=== PATIENT | female | born 1985 | race Hispanic/Latino ===

== ENCOUNTER 2022-05-02 12:22 | Emergency (ER) | payer OTHER ==
[~2022-05-02] VITALS: Ht 165.1 cm; Wt 80.3 kg
[2022-05-02 14:05] LABS: BASOPHILS % (AUTO) 0.2 % (0.0-5.0); HEMATOCRIT 42.9 % (36-48); LYMPHOCYTES % (AUTO) 13.5 % (21.0-51.0); MEAN CORPUSCULAR HEMOGLOBIN 32.8 pg (27.0-33.0); MEAN CORPUSCULAR HGB CONC 35.7 g/dL (32.0-36.0); MEAN CORPUSCULAR VOLUME 92.1 fL (79-99); MONOCYTES % (AUTO) 8.3 % (3.0-13.0); NEUTROPHILS % (AUTO) 77.5 % (40.0-77.0); PLATELET COUNT (AUTO) 217 K/uL (130-400); RED BLOOD CELL COUNT(AUTO) 4.66 MIL/uL (4.00-5.50); RED CELL DISTRIBUTION WIDTH 12.2 % (11.0-15.5); WHITE BLOOD COUNT (AUTO) 6.7 K/uL (4.8-10.8)
[2022-05-02 14:19] LABS: ALBUMIN 3.8 g/dL (3.5-5.0); BILIRUBIN,TOTAL 0.3 mg/dL (0.2-1.0); CREATININE 0.8 mg/dL (0.5-1.5); MAGNESIUM 2.3 mg/dL (1.80-2.40); POTASSIUM 3.8 mmol/L (3.5-5.1); TOTAL PROTEIN, SERUM 7.3 g/dL (6.0-8.3)
[2022-05-02 15:04] VITALS: BP 123/72
== END 2022-05-02 15:17 | disposition home or self-care (01) ==
LOC: EDH 12:22
DX: R00.1 Bradycardia, unspecified (principal); Z98.890 Other specified postprocedural states
CPT/HCPCS: 36415; 80053; 82550; 83735; 84484; 85025; 93005

== ENCOUNTER 2023-04-02 11:11 | Observation (INO) | payer BC, OTHER ==
[~2023-04-02] VITALS: Ht 165.1 cm; Wt 83.9 kg
[2023-04-02] MEDS ORDERED: ADENOSINE 6MG VIAL IV ONE ×3 (11:16→12:00)
[2023-04-02] MEDS ORDERED: ASPIRIN 325MG TAB PO ONE (11:30)
[2023-04-02 11:53] LABS: BASOPHILS % (AUTO) 0.8 % (0.0-5.0); EOSINOPHILS % (AUTO) 0.7 % (0.0-8.0); HEMATOCRIT 46.7 % (36-48); LYMPHOCYTES % (AUTO) 30.8 % (21.0-51.0); MEAN CORPUSCULAR HEMOGLOBIN 32.3 pg (27.0-33.0); MEAN CORPUSCULAR VOLUME 94.9 fL (79-99); NEUTROPHILS % (AUTO) 58.3 % (40.0-77.0); PLATELET COUNT (AUTO) 362 K/uL (130-400); RED BLOOD CELL COUNT(AUTO) 4.92 MIL/uL (4.00-5.50); RED CELL DISTRIBUTION WIDTH 12.3 % (11.0-15.5); WHITE BLOOD COUNT (AUTO) 9.1 K/uL (4.8-10.8)
[2023-04-02 11:58] LABS: CREATININE 0.7 mg/dL (0.5-1.5)
[2023-04-02 12:02] LABS: ALBUMIN 4.8 g/dL (3.5-5.0); TOTAL PROTEIN, SERUM 7.7 g/dL (6.0-8.3)
[2023-04-02 12:28] LABS: B-TYPE NATRIURETIC PEPTIDE 17 pg/mL (0-100)
[2023-04-02] MEDS ORDERED: ENOXAPARIN SODIUM 80 MG/0.8 ML SQ ONE (14:30)
[2023-04-02 14:41] LABS: APPEARANCE,URINE CLEAR (CLEAR); BILIRUBIN,URINE NEGATIVE (NEGATIVE); COLOR,URINE LIGHT-YELLOW (YELLOW); GLUCOSE, URINE (UA) NEGATIVE (NEGATIVE); KETONES,URINE 20 mg/dL (NEGATIVE); LEUKOCYTE ESTERASE ,URINE 75 Leu/uL (NEGATIVE); NITRATE,URINE 2+ (NEGATIVE); OCCULT BLOOD,URINE NEGATIVE (NEGATIVE); PH,URINE 6.5 (5.0-8.0); PROTEIN,URINE NEGATIVE (NEGATIVE); UROBILINOGEN,URINE 0.2 mg/dL (0.2-1.0)
[2023-04-02 14:52] LABS: BACTERIA,URINE RARE /HPF (None Seen); RBC,URINE 0-1 /HPF (0-1); SQUAMOUS EPITHELIAL CELL,UR RARE /HPF (0-2)
[2023-04-02 14:55] LABS: HCG,QUALITATIVE URINE NEGATIVE (NEGATIVE)
[2023-04-02] MEDS ORDERED: METO-391 PO (15:57)
[2023-04-02 16:30] VITALS: BP 107/68
== END 2023-04-02 16:46 | disposition home or self-care (01) ==
LOC: EDH 11:11 → EDHIP 15:03
PROVIDERS: ADMIT Family Medicine; ATTEND Family Medicine
DX: I47.1 Supraventricular tachycardia (principal); E66.01 Morbid (severe) obesity due to excess calories; N91.2 Amenorrhea, unspecified; Z98.84 Bariatric surgery status; Z79.899 Other long term (current) drug therapy; Z98.890 Other specified postprocedural states; Z98.891 History of uterine scar from previous surgery; Z68.30 Body mass index [BMI] 30.0-30.9, adult
CPT/HCPCS: 96374; 96372; 80050; 84484 ×2; 83880; 84703; 87077; 87088; 87186; 81001; 81025; 36415; 71045; 99291; 93005 ×2; G0378 ×2; J0153; J1650; 80053; 84443; 85025

== ENCOUNTER 2024-04-22 22:15 | Emergency (ER) | payer BC ==
[~2024-04-22] VITALS: Ht 167.6 cm; Wt 81.6 kg
[~2024-04-22 22:15] MED LIST: METO-391 PO
[2024-04-22 23:02] LABS: BASOPHILS # (AUTO) 0.05 K/uL (0.00-0.20); BASOPHILS % (AUTO) 0.8 % (0.0-5.0); EOSINOPHILS # (AUTO) 0.08 K/uL (0.00-0.70); EOSINOPHILS % (AUTO) 1.2 % (0.0-8.0); HEMATOCRIT 40.9 % (36-48); IMMATURE GRANULOCYTE ABSOLUTE 0.02 K/uL (0-1); LYMPHOCYTES # (AUTO) 2.9 K/uL (1.0-4.8); LYMPHOCYTES % (AUTO) 44.3 % (21.0-51.0); MEAN CORPUSCULAR HEMOGLOBIN 32.8 pg (27.0-33.0); MEAN CORPUSCULAR HGB CONC 34.7 g/dL (32.0-36.0); MEAN CORPUSCULAR VOLUME 94.5 fL (79-99); MONOCYTES # (AUTO) 0.6 K/uL (0.1-1.0); MONOCYTES % (AUTO) 9.3 % (3.0-13.0); NEUTROPHILS # (AUTO) 2.9 K/uL (1.8-7.7); NEUTROPHILS % (AUTO) 44.1 % (40.0-77.0); PLATELET COUNT (AUTO) 261 K/uL (130-400); RED BLOOD CELL COUNT(AUTO) 4.33 MIL/uL (4.00-5.50); RED CELL DISTRIBUTION WIDTH 11.8 % (11.0-15.5); WHITE BLOOD COUNT (AUTO) 6.6 K/uL (4.8-10.8)
[2024-04-22 23:10] LABS: CREATININE 0.7 mg/dL (0.5-1.0); POTASSIUM 3.6 mmol/L (3.5-5.1)
[2024-04-22 23:11] LABS: APPEARANCE,URINE CLEAR (CLEAR); BILIRUBIN,URINE NEGATIVE (NEGATIVE); COLOR,URINE YELLOW (YELLOW); GLUCOSE, URINE (UA) NEGATIVE (NEGATIVE); KETONES,URINE 5 mg/dL (NEGATIVE); LEUKOCYTE ESTERASE ,URINE NEGATIVE Leu/uL (NEGATIVE); NITRATE,URINE NEGATIVE (NEGATIVE); OCCULT BLOOD,URINE NEGATIVE (NEGATIVE); PH,URINE 5.5 (5.0-8.0); PROTEIN,URINE 10 mg/dL (NEGATIVE); UROBILINOGEN,URINE 3 mg/dL (0.2-1.0)
[2024-04-22 23:17] LABS: HCG,QUALITATIVE URINE NEGATIVE (NEGATIVE)
[2024-04-22 23:26] LABS: B-TYPE NATRIURETIC PEPTIDE 6 pg/mL (0-100)
[2024-04-22 23:27] LABS: ADD UA MICROSCOPIC YES
[2024-04-22 23:33] LABS: CALCIUM OXALATE CRYSTALS,UR FEW /LPF (None Seen); MUCUS,URINE FEW LPF (None Seen); RBC,URINE 0-1 /HPF (0-1); SQUAMOUS EPITHELIAL CELL,UR RARE /HPF (0-2)
[2024-04-23 01:57] VITALS: BP 126/62; PULSE 68; RESP 20; O2SAT 98
== END 2024-04-23 02:13 | disposition home or self-care (01) ==
LOC: EDH 22:15
DX: R00.2 Palpitations (principal); Z79.899 Other long term (current) drug therapy; Z98.890 Other specified postprocedural states
CPT/HCPCS: 36415; 71045; 80048; 81001; 81025; 82550; 83880; 84484; 85025; 93005

== ENCOUNTER 2024-06-18 20:38 | Emergency (ER) | payer BC ==
[~2024-06-18] VITALS: Ht 165.1 cm; Wt 81.6 kg
[2024-06-18 21:08] LABS: BASOPHILS # (AUTO) 0.07 K/uL (0.00-0.20); BASOPHILS % (AUTO) 0.8 % (0.0-5.0); EOSINOPHILS # (AUTO) 0.09 K/uL (0.00-0.70); HEMATOCRIT 40.1 % (36-48); IMMATURE GRANULOCYTE ABSOLUTE 0.04 K/uL (0-1); LYMPHOCYTES # (AUTO) 2.1 K/uL (1.0-4.8); LYMPHOCYTES % (AUTO) 24.7 % (21.0-51.0); MEAN CORPUSCULAR HEMOGLOBIN 32.8 pg (27.0-33.0); MEAN CORPUSCULAR HGB CONC 33.7 g/dL (32.0-36.0); MEAN CORPUSCULAR VOLUME 97.3 fL (79-99); MONOCYTES # (AUTO) 0.8 K/uL (0.1-1.0); MONOCYTES % (AUTO) 9.3 % (3.0-13.0); NEUTROPHILS # (AUTO) 5.5 K/uL (1.8-7.7); NEUTROPHILS % (AUTO) 63.7 % (40.0-77.0); PLATELET COUNT (AUTO) 280 K/uL (130-400); RED BLOOD CELL COUNT(AUTO) 4.12 MIL/uL (4.00-5.50); RED CELL DISTRIBUTION WIDTH 13.2 % (11.0-15.5); WHITE BLOOD COUNT (AUTO) 8.6 K/uL (4.8-10.8)
[2024-06-18 21:17] LABS: CREATININE 0.8 mg/dL (0.5-1.0); POTASSIUM 3.9 mmol/L (3.5-5.1)
[2024-06-18 21:27] LABS: ALBUMIN 3.8 g/dL (3.5-5.0); B-TYPE NATRIURETIC PEPTIDE 29 pg/mL (0-100); BILIRUBIN,TOTAL 0.7 mg/dL (0.2-1.0); TOTAL PROTEIN, SERUM 6.6 g/dL (6.0-8.3)
[2024-06-18 21:27] LABS: APPEARANCE,URINE CLEAR (CLEAR); BILIRUBIN,URINE NEGATIVE (NEGATIVE); COLOR,URINE YELLOW (YELLOW); GLUCOSE, URINE (UA) NEGATIVE (NEGATIVE); KETONES,URINE 5 mg/dL (NEGATIVE); LEUKOCYTE ESTERASE ,URINE NEGATIVE Leu/uL (NEGATIVE); NITRATE,URINE NEGATIVE (NEGATIVE); OCCULT BLOOD,URINE NEGATIVE (NEGATIVE); PH,URINE 5.5 (5.0-8.0); PROTEIN,URINE 20 mg/dL (NEGATIVE)
[2024-06-18 21:28] LABS: ADD UA MICROSCOPIC YES
[2024-06-18 21:29] LABS: BACTERIA,URINE RARE /HPF (None Seen); CALCIUM OXALATE CRYSTALS,UR FEW /LPF (None Seen); MUCUS,URINE MOD LPF (None Seen); RBC,URINE 0-1 /HPF (0-1); SQUAMOUS EPITHELIAL CELL,UR RARE /HPF (0-2)
[2024-06-18] MEDS ORDERED: METH4TAB3 PO (22:16)
[2024-06-18] MEDS ORDERED: DIPH-1242 PO (22:16)
[2024-06-18] MEDS ORDERED: FAMO-136 PO (22:16)
[2024-06-18 23:11] VITALS: BP 111/70; PULSE 66; RESP 18; TEMP 98.4; O2SAT 98
[2024-06-18] MEDS: dexaMETHasone 4 MG TAB PO SCH (23:15)
[2024-06-18] MEDS: FAMOTIDINE 20MG TAB PO ONE (23:15)
[2024-06-18] MEDS: DiphenhydrAMINE HCL 25 MG CAPSULE PO ONE (23:16)
== END 2024-06-18 23:19 | disposition home or self-care (01) ==
LOC: EDH 20:38
DX: M79.10 Myalgia, unspecified site (principal); T50.905A Adverse effect of unspecified drugs, medicaments and biological substances, initial encounter; Z79.899 Other long term (current) drug therapy; Z98.890 Other specified postprocedural states; Y92.89 Other specified places as the place of occurrence of the external cause
CPT/HCPCS: 99284; 82550; 84484; 80053; 83880; 84703; 83690; 85025; 81001; 36415; 93005; Q0163; J8540

== ENCOUNTER 2025-08-29 21:49 | Emergency (ER) | payer BC ==
[~2025-08-29] VITALS: Ht 165.1 cm; Wt 72.1 kg
[~2025-08-29 21:49] MED LIST changes: +DIPH-1242 PO; +FAMO-136 PO; +METH4TAB3 PO
[2025-08-29 22:02] LABS: IMMATURE GRANULOCYTE ABSOLUTE 0.02 K/uL (0-1); NUCLEATED RED BLOOD CELLS 0.0 % (0.0-0.19); PLATELET COUNT (AUTO) 264 K/uL (130-400); RED BLOOD CELL COUNT(AUTO) 4.47 MIL/uL (4.00-5.50); RED CELL DISTRIBUTION WIDTH 12.3 % (11.0-15.5); WHITE BLOOD COUNT (AUTO) 9.1 K/uL (4.8-10.8)
[2025-08-29 22:16] LABS: CREATINE KINASE, TOTAL 98.0 U/L (21-232); CREATININE 0.7 mg/dL (0.5-1.0); GLOMERULAR FILTR. RATE CALC 112.0 mL/min (>90); GLUCOSE,RANDOM 112.0 mg/dL (70-105); SODIUM SERUM 141.0 mmol/L (136-145); UREA NITROGEN, BLOOD 13.0 mg/dL (7-18)
[2025-08-29] MEDS: 0.9%NACL 1000ML 1,000 ML IV ONE (22:27)
[2025-08-29] MEDS: ADENOSINE 6MG VIAL IV ONE ×2 (22:28)
--- NOTE | 2025-08-29 23:05 | HMCIMG ---
EXAM: CR Chest, 1 View. CLINICAL HISTORY: CHEST PAIN COMPARISON: None provided. FINDINGS: LUNGS: The lungs show no infiltrate or other acute finding. PLEURAL SPACES: No evidence of pleural effusion or pneumothorax. MEDIASTINUM: The cardiomediastinal silhouette is within normal limits. BONES: No aggressive appearing osseous lesion seen. IMPRESSION: No acute cardiopulmonary pathology is evident. /[place]
[2025-08-30] LABS: APPEARANCE,URINE CLEAR (CLEAR); GLUCOSE, URINE (UA) NEGATIVE (NEGATIVE); LEUKOCYTE ESTERASE ,URINE NEGATIVE Leu/uL (NEGATIVE); NITRATE,URINE NEGATIVE (NEGATIVE); OCCULT BLOOD,URINE NEGATIVE (NEGATIVE)
[2025-08-30 00:01] LABS: ADD UA MICROSCOPIC YES
[2025-08-30 00:05] LABS: SQUAMOUS EPITHELIAL CELL,UR RARE /HPF (0-2)
--- NOTE | 2025-08-30 00:06 | ERN ---
ED Note History of Present Illness Stated Complaint: C/O PALPITATIONS; HX OF SVT Chief Complaint: Palpitations Time Seen by MD: 21:51 Time Seen by Midlevel: 21:51 Dictation: The patient is an 39-year-old female with history of SVT currently on metoprolol 50 mg daily who presents to the emergency department with complains of palpitations onset 8:30 pm. Reports her heart rate to be 200s and try to do Valsalva maneuvers with no relief. Reports compliant with mediation. Denies any chest pain. Allergies: Coded Allergies: No Known Allergies (Unverified Allergy, Unknown, 05/02/22) Home Meds Active Scripts Methylprednisolone (Medrol) 4 Mg Tab.ds.pk, 4 MG PO AD, #1 PACK Prov:[facility] 06/18/24 Diphenhydramine HCl (Benadryl) 25 Mg Cap, 25 MG PO BID for 5 Days, #10 CAP Prov:[facility] 06/18/24 Famotidine (Pepcid) 20 Mg Tablet, 20 MG PO BID for 7 Days, #14 TAB Prov:[facility] 06/18/24 Metoprolol Succinate (Metoprolol Succinate) 50 Mg Tab.er.24h, 50 MG PO DAILY, #30 TAB Prov:DESIREE SALMERON MD 04/02/23 Past Medical History Past Medical History: Other Additional Past Medical Hx: HX OF TACHYCARDIA Surgical History: Other, Surgical History Other: GASTRIC SLEEVE; BREAST IMPLANTS Social History: Negative, Lives with family History: Not Applicable RN Note Reviewed/Agreed w/PFSH: Yes Review of System Dictation Constitutional: Negative for fever,chills, and weight loss Eyes: Negative for injury, pain,redness, and discharge ENT: Negative for injury,pain or swelling Cardiovascular: Negative for chest pain, and edema Positive for palpitations, Respiratory: Negative for cough, and wheezing, positive for shortness of breath Abdomen/GI: Negative for abdominal pain, nausea, vomiting, diarrhea, and constipation Back: Negative for injury and pain : Negative for injury, bleeding and discharge MS/Extremity: Negative for injury and deformity Skin: Negative for rash, and discoloration Neuro: Negative for headache, weakness, numbness, tingling, and seizure Psych: Negative for suicide ideation, homicidal ideation, and hallucinations Initial Vital Sign VS Vital Signs Date Time Temp Pulse Resp B/P (MAP) Pulse Ox O2 Delivery O2 Flow Rate FiO2 08/29/25 21:51 98.1 188 24 147/100 98 Room Air 08/29/25 22:00 10 100 Physical Exam Dictation Vital Signs reviewed General Appearance: Alert, oriented x 3, no acute distress, well developed, nourished. Head and Face: non-traumatic. Eyes: PERRL, pink conjunctivas, eyelid no trauma, anterior chamber with arcus senilis. Ears: Pinnas intact and no signs of trauma or erythema ear canals clear and no discharge TM no erythema Nose: No discharge, no bleeding. Oropharynx: Mouth normal, tongue pink. pharynx clear,no erythema, tonsils no exudates, no abscesses noted, mucous membrane moist Neck: Supple, non-tender, no thyromegaly, no masses, no JVD, no bruits Breast:Deferred Chest:No tenderness, no crepitus, no paradoxical movement, no retractions Lungs:Clear, well-ventilated, symmetric, no rales, no wheezing, no rhonchi, no stridor, good breath sounds bilaterally Heart: Regular rate, regular rhythm, no murmur, no gallops Vascular: no peripheral edema, Abdomen: Soft, positive bowel sounds, nondistended, no guarding, nontender, no rebound, no masses no hepatomegaly, no splenomegaly, no Carpio's sign, no hernias. Rectal: Deferred Genital: Deferred Neurological: Normal speech, motor function intact, sensory function intact Musculoskeletal: Neck nontender, full range of motion, back nontender, full range of motion, Extremities: nontender, full range of motion Skin: Color pink, dry, no turgor, no rash, no lacerations, no abrasions, no contusions. Lymphatic: Deferred Results (Laboratory/Radiology) Laboratory/Radiology Laboratory Tests Test 08/29/25 21:55 08/29/25 23:44 White Blood Count 9.1 K/uL (4.8-10.8) Red Blood Count 4.47 MIL/uL (4.00-5.50) Hemoglobin 14.4 g/dL (12.0-16.0) Hematocrit 42.7 % (36-48) Mean Corpuscular Volume 95.5 fL (79-99) Mean Corpuscular Hemoglobin 32.2 pg (27.0-33.0) Mean Corpuscular Hemoglobin Concent 33.7 g/dL (32.0-36.0) Red Cell Distribution Width 12.3 % (11.0-15.5) Platelet Count 264 K/uL (130-400) Mean Platelet Volume 10.5 fL (7.5-10.5) Immature Granulocyte % (Auto) 0.2 % (0-1) Neutrophils (%) (Auto) 51.4 % (40.0-77.0) Lymphocytes (%) (Auto) 37.7 % (21.0-51.0) Monocytes (%) (Auto) 9.2 % (3.0-13.0) Eosinophils (%) (Auto) 1.1 % (0.0-8.0) Basophils (%) (Auto) 0.4 % (0.0-5.0) Neutrophils # (Auto) 4.7 K/uL (1.8-7.7) Lymphocytes # (Auto) 3.4 K/uL (1.0-4.8) Monocytes # (Auto) 0.8 K/uL (0.1-1.0) Eosinophils # (Auto) 0.10 K/uL (0.00-0.70) Basophils # (Auto) 0.04 K/uL (0.00-0.20) Absolute Immature Granulocyte (auto 0.02 K/uL (0-1) Nucleated Red Blood Cells 0.0 % (0.0-0.19) Sodium Level 141 mmol/L (136-145) Potassium Level 3.1 mmol/L (3.5-5.1) L Chloride Level 104 mmol/L (101-111) Carbon Dioxide Level 24 mmol/L (21-32) Blood Urea Nitrogen 13 mg/dL (7-18) Creatinine 0.7 mg/dL (0.5-1.0) Glomerular Filtration Rate Calc 112 mL/min (>90) Random Glucose 112 mg/dL (70-105) H Total Calcium 9.4 mg/dL (8.5-10.1) Magnesium Level 2.00 mg/dL (1.80-2.40) Total Creatine Kinase 98 U/L (21-232) # Troponin I High Sensitivity < 4 ng/L (4-50) L Serum Test, Qualitative NEGATIVE (NEGATIVE) Urine Color COLORLESS (YELLOW) Urine Appearance CLEAR (CLEAR) Urine pH 6.5 (5.0-8.0) Urine Specific [place] 1.005 (1.001-1.031) Urine Protein NEGATIVE mg/dL (NEGATIVE) Urine Glucose (UA) NEGATIVE mg/dL (NEGATIVE) Urine Ketones 10 mg/dL (NEGATIVE) H Urine Occult Blood NEGATIVE (NEGATIVE) Urine Nitrate NEGATIVE (NEGATIVE) Urine Bilirubin NEGATIVE mg/dL (NEGATIVE) Urine Urobilinogen 0.2 mg/dL (0.2-1.0) Urine Leukocyte Esterase NEGATIVE [place]/uL Urine RBC None /HPF (0-1) Urine WBC 0-1 /HPF (0-1) Urine Squamous Epithelial Cells RARE /HPF (0-2) Urine Bacteria None /HPF (None Seen) REASON: CHEST PAIN ORDERING PHYSICIAN: EMILIE AMES MD PROCEDURE: CXR1VW - CHEST 1VW EXAM: CR Chest, 1 View. CLINICAL HISTORY: CHEST PAIN COMPARISON: None provided. FINDINGS: LUNGS: The lungs show no infiltrate or other acute finding. PLEURAL SPACES: No evidence of pleural effusion or pneumothorax. MEDIASTINUM: The cardiomediastinal silhouette is within normal limits. BONES: No aggressive appearing osseous lesion seen. IMPRESSION: No acute cardiopulmonary pathology is evident. /[place] Labs Reviewed?: Yes EKG: (+) rhythm (SVT) EKG Comment: Date:08/29/2025 Time:2149 Ventricular rate:168 NH interval:94 QRS duration:93 QT/QTc:297/498 EKG interpretation:SVT Reviewed by ED Attending No stemi Date:08/29/2025 Time:2203 Ventricular rate:96 NH interval:143 QRS duration:87 QT/QTc:350/442 EKG interpretation: sinus rhythm Reviewed by ED Attending No STEMI ED Course ED Course Orders Procedure Category Date Status Time Vital Signs Per CPOE 08/29/25 Transmitted Routine 21:53 Chest 1vw RAD 08/29/25 Resulted 21:53 12 Lead Ekg Tracing- EKG 08/29/25 Logged Technical 21:53 Oxygen By Nc/Pulse Ox CPOE 08/29/25 Transmitted 21:53 Maintain Iv CPOE 08/29/25 Transmitted 21:53 Iv Insertion CPOE 08/29/25 Transmitted 21:53 Cardiac Monitoring CPOE 08/29/25 Transmitted 21:53 Pulse Oximetry With CPOE 08/29/25 Transmitted Vs And Prn 21:53 Cbc With Differential LAB 08/29/25 Complete 21:53 Activity: Br W/Brp CPOE 08/29/25 Transmitted With Assist 21:53 Creatine Kinase, Total LAB 08/29/25 Complete 21:53 Troponin I High LAB 08/29/25 Complete Sensitivity 21:53 Urinalysis Profile LAB 08/29/25 Complete 21:53 Basic Metabolic Panel LAB 08/29/25 Complete 21:53 Adenosine 6mg Vial PHA 08/29/25 Complete (Adenocard 6mg Vial) 22:03 0.9%Nacl 1000ml (Ns PHA 08/29/25 Complete 1000ml) 22:30 Testing, LAB 08/29/25 Complete Serum Hcg 22:04 Adenosine 6mg Vial PHA 08/29/25 Complete (Adenocard 6mg Vial) 22:30 Magnesium LAB 08/29/25 Complete 21:55 Potassium Bicarb/Cit PHA 08/29/25 Complete Ac 25meq (K-Lyte Ta 22:30 12 Lead Ekg Tracing- EKG 08/29/25 Logged Technical 22:29 Current Medications Medications (Trade) Dose Ordered Sig/Renuka Route PRN Reason Start Time Stop Time Status Last Admin Dose Admin Adenosine (Adenocard 6mg Vial) 6 mg ONCE ONCE IV 08/29/25 22:30 08/29/25 22:31 DC 08/29/25 22:28 Adenosine (Adenocard 6mg Vial) 6 mg STK-MED ONCE IV 08/29/25 22:03 08/29/25 22:03 DC Potassium Bicarbonate (K-Lyte Tablet Eff 25 Meq Tablet.eff) 25 meq ONCE ONCE PO 08/29/25 22:30 08/29/25 22:31 DC 08/29/25 22:41 Sodium Chloride 1,000 ml @ 0 mls/hr ONCE ONCE IV 08/29/25 22:30 08/29/25 22:31 DC 08/29/25 22:27 Vital Signs Date Time Temp Pulse Resp B/P (MAP) Pulse Ox O2 Delivery O2 Flow Rate FiO2 08/30/25 00:17 98.8 83 18 121/66 98 Room Air* 0 21 08/29/25 22:28 180 08/29/25 22:00 98.8 181 20 126/55 99 Non-Rebreather+ 10 100 08/29/25 21:51 98.1 188 24 147/100 98 Room Air Medical Decision Making MDM The patient is an 39-year-old female with history of SVT currently on metoprolol 50 mg daily who presents to the emergency department with complains of palpitations onset 8:30 pm. Reports her heart rate to be 200s and try to do Valsalva maneuvers with no relief. Reports compliant with mediation. Denies any chest pain. CBC showed no leukocytosis, no anemia, chemistry showed mild hypokalemia which was replaced, negative troponin, normal renal function, xray showed no acute pathology. Patient initially in SVT and converted after 6 mg of adenosine. Patient was observed in ER without any more arrhythmia. Patient at this time feels good and has no complains, Patient would like to be discharge at this time. Differential diagnosis:tachyarrhythmia, electrolyte imbalance, acs Need for hospitalization: Patient does not meet criteria for hospitalization. There are no social concerns with this patient. Critical Care Note Critical Time: other (36) Comment(s) Total critical care time was 36 minutes. Excluding time for procedures. Management of critically ill patient with concern for acute decompensation. Management included interpretation of laboratory values and imaging, hemodynamics, time for consultation with consultants and admitting physician. DX & DISP Disposition: Discharge Departure Impression: Primary Impression: SVT (supraventricular tachycardia) Additional Impression: Hypokalemia Condition: Stable Additional Instructions: your labs were unremarkable, except your potassium was slightly low. Please follow up with your PCP in 1-2 days. Continue taking your medications as prescribe. If anything worsens please return to ER. FOLLOW-UP WITH PRIMARY CARE PROVIDER IN 1 TO 2 DAYS. TAKE MEDICATIONS DIRECTED HERE IN THE EMERGENCY ROOM. OKAY TO CONTINUE HOME MEDICATIONS UNLESS OTHERWISE DISCUSSED DURING YOUR VISIT IN THE EMERGENCY ROOM TODAY. RETURN TO YOUR NEAREST EMERGENCY ROOM IF SYMPTOMS WORSEN OR IF THERE IS NO IMPROVEMENT. CALL 911 IF YOU NEED IMMEDIATE ASSISTANCE. TAKE TYLENOL [id number] NEEDED AND IF NO CONTRAINDICATIONS ARE PRESENT. INCREASE ORAL HYDRATION. A WOUND CULTURE OR URINE CULTURE WAS ORDERED HERE IN THE EMERGENCY ROOM DEPARTMENT PLEASE FOLLOW-UP WITH PRIMARY CARE PROVIDER AND ADVISE THEM TO GET REPEAT PORTS FROM OUR FACILITY. IF YOU HAD ANY LORY WRAP/SPLINTS THAT WERE APPLIED HERE, PLEASE DO NOT REMOVE THEM UNTIL YOU SEE YOUR PRIMARY CARE OR SPECIALTY. Referrals: MAYRA SMILEY (PCP) Time of Disposition: 00:20 I have examined patient, & reviewed all documents, & agreed W/ the Diagnosis, and Plan MICHELLE APARICIO LEGAL RECORDS MANAGER Aug 30, 2025 00:06
[2025-08-30 00:17] VITALS: BP 121/66; PULSE 83; RESP 18; TEMP 98.8; O2SAT 98
--- NOTE | 2025-08-30 04:43 | EKG ---
[facility] Test Date: 2025-08-29 Test Time: 21:50:00 Pat Name: RASHAUN BARBER Department: ED Room: Gender: F Electronic Semiconductor Processor: [id number] : 1985 Requested By: EMILIE AMES Order Number: [id number] Reading MD: Cristiano Moore Measurements Intervals [place] Rate: 168 P: -90 [place]: 94 QRS: 62 QRSD: 93 T: 264 QT: 297 QTc: 498 Interpretive Statements Sinus or ectopic atrial tachycardia Repol abnrm suggests ischemia, diffuse leads Compared to ECG 06/18/2024 21:05:53 Early repolarization now present Possible ischemia now present Sinus rhythm no longer present Electronically Signed On 08-30-2025 11:28:50 INVESTMENT ACCOUNTANT by Cristiano Moore Please click the below link to view image of tracing.
--- NOTE | 2025-08-30 04:44 | EKG ---
[facility] Test Date: 2025-08-29 Test Time: 22:04:49 Pat Name: RASHAUN BARBER Department: ED Room: Gender: F Communications Engineering Technician: [id number] : 1985 Requested By: EMILIE AMES Order Number: [id number] Reading MD: Cristiano Moore Measurements Intervals [place] Rate: 96 P: 75 [place]: 143 QRS: 54 QRSD: 87 T: 48 QT: 350 QTc: 442 Interpretive Statements Sinus rhythm Probable left atrial enlargement Compared to ECG 08/29/2025 21:50:00 Early repolarization no longer present Possible ischemia no longer present Electronically Signed On 08-30-2025 11:28:51 DISINTEGRATOR FEEDER by Cristiano Moore Please click the below link to view image of tracing.
== END 2025-08-30 00:55 | disposition home or self-care (01) ==
LOC: EDH 21:49
DX: I47.10 Supraventricular tachycardia, unspecified (principal); E87.6 Hypokalemia; Z98.82 Breast implant status; Z86.79 Personal history of other diseases of the circulatory system; Z79.899 Other long term (current) drug therapy
CPT/HCPCS: 99291; 96374; 96361; 82550; 83735; 84484; 80048; 84703; 85025; 81001; 36415; 71045; 93005 ×2; J0153; J7030; 99284